=== PATIENT | female | born 1995 ===

== ENCOUNTER 2025-01-27 09:58 | Outpatient (AMB) | payer MEDICAID, SELFPAY ==
[2025-01-27 10:09] VITALS: BP 113/73; PULSE 73; RESP 16; TEMP 36.8; O2SAT 99; BMI 33.8
--- NOTE | 2025-01-27 10:09 | OBCLNT_ITS ---
Vital Signs 01/27/25 10:09 Height 1.52 m Height Method Stated Weight 78.642 kg Weight Measurement Method Standing Scale BMI 33.8 BP 113/73 Blood Pressure Source Automatic Cuff Blood Pressure Location Left Upper Arm Position Sitting Respiration 16 Pulse 73 Pulse Source Monitor Temp 98.2 F Temp Source Oral Pulse Oximetry (%) 99 Oxygen Delivery Method Room Air Allergies/Home Meds Allergies & Medications Allergies No Known Drug Allergies Allergy (Unknown, Verified 01/27/25 10:13) Intake Visit Data Collection New Patient or Established: Established Patient (seen at [facility] within 3 years) Reason for Visit:: OBC Seen by Clinical Staff ONLY (RN/MA): No Do You Feel Safe at Home: Yes Authorities Contacted: N/A PCP or OBGYN visit in last 3 months: No Hx Now: Yes Are you currently on any form of Control: No Last menstrual period: 10/29/24 Pain Present Currently: No Pain scale:: 0 Smoking Status Smoking Status: Never smoker Questionnaires Covid-19 Vaccine Questionnaire Has patient been vacinated for Covid-19 Have you been vacinated for Covid-19: Yes PHQ-9 PHQ-2 Over the last 2 weeks, how often have you been bothered by any of the following problems? 1. Little interest or pleasure in doing things: not at all 2. Feeling down, depressed, or hopeless: not at all Total score: 0 PHQ-9 3. Trouble falling or staying asleep, or sleeping too much: Not at all 4. Feeling tired or having little energy: Not at all 5. Poor appetite or overeating: Not at all 6. Feeling bad about yourself - or that you are a failure or have let yourself or your family down: Not at all 7. Trouble concentrating on things, such as reading the newspaper or watching television: Not at all 8. Moving or speaking so slowly that other people could have noticed? - Or the opposite - being so fidgety or restless that you have been moving around a lot more than usual: not at all 9. Thoughts that you would be better off or of hurting yourself in some way: Not at all Total score: 0 If you checked off any problems, how difficult have these problems made it for you to do your work, take care of things at home, or get along with other people?: not difficult at all Source: Developed by Drs. Jseús Parson, Suzanne Dill, Josh Cole and colleagues, with an educational rajan from [employer]. Depression screen completed yes Social History Living Situation History Marital Status: Lives With: Family Housing: House Tobacco History Smoking Status: Never smoker Alcohol History Alcohol Intake: Never Domestic Abuse History Do You Feel Safe at Home: Yes Past Medical History Past Medical History Have you ever been diagnosed with any of the following: Cardiology Problems Congestive Heart Failure: No Respiratory Problems Chronic Obstructive Pulmonary Disease (COPD): No Stomache/Intestinal Problems Hepatitis: No Colorectal Cancer: No Genital/Urinary Problems Renal Disease: No Prostate Cancer: No Reproductive Problems Breast Cancer: No Testicular Cancer: No Musculoskeletal Problems Bone Cancer: No Endocrine Problems Diabetes Mellitus Type 1: No Diabetes Mellitus Type 2: No Other Problems Human Immunodeficiency Virus (HIV): No Chicken Pox: No Measles: No Mumps: No Rubella (Belarusian Measles): No Pertussis: No Clostridium Difficile: No Cancer: No Cervical Cancer: No Lung Cancer: No Ovarian Cancer: No History of Present Illness HPI Narrative Patient presents for her first visit, referred by her previous healthcare provider, Mariana. She reports her last menstrual period was on October 29. Patient denies any current nausea or vomiting, stating that her nausea has resolved. She also reports that her dizziness has subsided. Patient denies any bleeding or cramping. She is currently taking vitamins. Patient has a history of two previous pregnancies, both resulting in vaginal deliveries without complications such as high blood pressure or gestational diabetes. She has not yet established a coverstitch elastic attacher for her children due to frequent changes in available providers. Additionally, her cousin recommended Dr. Saavedra based on a positive experience. TRUDI based on LMP (10/29/2024) 08/05/2025 TRUDI by ultrasound 11w2d on 01/27/2025 is 08/16/2025 OB Initial Visit Menstrual History Menstrual reliability: definite Flow: normal Menstrual regularity: regular Monthly: Yes On control pills at conception: No Date of positive home test: 12/09/24 OB History : 3 Para: 2 Hx # Pregnancies: 0 Hx Total # of Abortions (Spontaneous & Elective): 0 # of Living Children: 2 Delivery History 1st : Child's name: NAVA date: 12/23/14 sex: male Delivery type: vaginal History of depression before or after : No 2nd : Child's name: JOAQUIN date: 12/06/19 sex: female Delivery type: vaginal weight (lbs): 2267.962 g History of depression before or after : No Genetic Screening & History Genetic Screening/Teratology Counseling - Includes patient, baby's father, or anyone in either family with: 1. Patient's age 35 years or older as of estimated date of delivery: No 2. Thalassemia (Croatian, Sao Tomean, Mediterranean, or Background); MCV less than 80: No 3. Neural Tube Defect (Meningomyelocele, Spina Bifida, or Anencephaly): No 4. Congenital Heart Defect: No 5. Down Syndrome: Yes 6. Donnie-Sachs (Ashkenazi Protestant, Cajun, [place]an [place]): No 7. Julia Disease (Ashkenazi Protestant): No 8. Familial Dysautonomia (Ashkenazi Protestant): No 9. Sickle Cell Disease or Trait (): No 10. Hemophilia or other blood disorders: No 11. Muscular Dystrophy: No 12. Cystic Fibrosis: No 13. Ceiba's Chorea: No 14. Mental Retardation/Autism: No 15. Other inherited genetic or chromosomal disorder: No 16. Maternal Metabolic Disorder (EG,TYPE 1 Diabetes, PKU): No 17. Patient or baby's father had a child with defects not listed above: Yes 18. Recurrent loss or a stillbirth: No 19. Medications (including supplements, vitamins, herbs or otc drugs)/illicit/recreational drugs/alcohol since last menstrual period: No 20. Any other: No Infection History 1. Live with someone with TB or exposed to TB: No 2. Rash or viral illness since last menstrual period: No 3. Hepatitis B,C: No Other (see comments) Source: [employer] Review of Systems Review of Systems Systems Reviewed: All systems reviewed, normal except as documented Exam General Limitations: no limitations General Appearance: alert, in no apparent distress, comfortable, cooperative, healthy appearing, well developed and well groomed Head Head exam: atraumatic, normocephalic and normal inspection ENT ENT exam: Present normal exam, normal oropharynx and mucous membranes moist Neck Neck exam: Present normal inspection, full ROM and trachea midline Chest Chest inspection: Present normal inspection and symmetric chest wall rise Abdominal Abdominal exam: Present soft and normal bowel sounds Exp OB exam: Present deferred Extremities Extremities exam: Present normal inspection and full ROM Back Back exam: Present normal inspection and full ROM Psych Psychiatric exam: Present normal affect and normal mood Skin Skin exam: Present warm, dry, intact and normal color Assessment & Plan Diagnosis / Problem List (1) Rh negative status during : Status: Acute Plan: , 11 weeks 3 days gestation: - First visit at approximately 11 weeks 3 days gestation based on ultrasound dating. - Last menstrual period was October 29. - Bedside Ultrasound confirms kohler intrauterine with heart rate of 166 bpm, normal for first trimester. - Patient denies current symptoms of nausea, vomiting, dizziness, bleeding, or cramping. - No history of gestational hypertension or gestational diabetes in previous pregnancies. - Patient has had two previous uncomplicated vaginal deliveries. - Referred by Mariana due to availability issues at [facility]. Plan: - Established estimated due date of August 05 based on last menstrual period, with ultrasound suggesting August 16. - Ordered comprehensive laboratory tests. - Ordered genetic screening tests including gender determination and Down syndrome screening. - Recommended patient sign up for patient portal to access test results. - Scheduled follow-up appointment in 4 weeks. - Continue vitamins. (2) Normal in multigravida in first trimester: Status: Acute Office Procedures OB Clinic LOC & Office Proc's Nursing/Assessment Patient Status: Initial/New Patient OB Clinic Nursing Assessment: BP Monitoring, Medication Reconciliation, Update PMH in EMR and Vital Signs OB Clinic Coordination of Care: Consent,records obtained, informed consent, Education Simp Pt/Fam, Lab and Imaging orders and Staff clarify orders Special Needs: Heart tones New Patient Charge New Patient Point Assignment: 1119 New Patient Point Charge: INDUSTRIAL RELATIONS SPECIALIST Level 4 ([id number]) Established Patient Charge Established Patient Point Charge: EP Level 4 (120-155) Antepartum Initial or Follow-up Antepartum Initial Visit: Yes Bedside Ultrasounds US Transabdominal <14 weeks at bedside: Yes
== END 2025-01-27 10:27 | disposition home or self-care (01) ==
LOC: HODSOBC 09:58
PROVIDERS: PCP Obstetrics & Gynecology; Supervising Provider Obstetrics & Gynecology; Visit Provider Obstetrics & Gynecology
DX: O26.899 Other specified pregnancy related conditions, unspecified trimester (principal); Z67.91 Unspecified blood type, Rh negative
CPT/HCPCS: 76801; 76805; 99204; 99214; G0463

== ENCOUNTER 2025-02-26 09:32 | Outpatient (AMB) | payer MEDICAID, SELFPAY ==
[2025-02-26 09:45] VITALS: BP 122/75; PULSE 90; RESP 18; TEMP 36.1; O2SAT 99; BMI 33.7
--- NOTE | 2025-02-26 09:45 | AMB.OBVISIT ---
Vital Signs 02/26/25 09:45 Height 1.52 m Height Method Stated Weight 78.075 kg Weight Measurement Method Standing Scale BMI 33.7 BP 122/75 Blood Pressure Source Automatic Cuff Blood Pressure Location Left Upper Arm Position Sitting Respiration 18 Pulse 90 Pulse Source Monitor Temp 96.9 F Temp Source Oral Pulse Oximetry (%) 99 Oxygen Delivery Method Room Air Allergies/Home Meds Allergies & Medications Allergies No Known Drug Allergies Allergy (Unknown, Verified 01/27/25 10:13) Intake Visit Data Collection New Patient or Established: Established Patient (seen at [facility] within 3 years) Reason for Visit:: - Possible yeast infection: I think I might have a yeast infection - Itching - Vaginal discharge Seen by Clinical Staff ONLY (RN/MA): No Histology Teacher Required: No Do You Feel Safe at Home: Yes Authorities Contacted: N/A PCP or OBGYN visit in last 3 months: Yes Hx Now: No Are you currently on any form of Control: No Pain Present Currently: No Pain Scale Used: Henning-Santiago/Numerical Pain scale:: 0 Smoking Status Smoking Status: Never smoker Questionnaires Covid-19 Vaccine Questionnaire Has patient been vacinated for Covid-19 Have you been vacinated for Covid-19: No PHQ-9 PHQ-2 Over the last 2 weeks, how often have you been bothered by any of the following problems? 1. Little interest or pleasure in doing things: not at all 2. Feeling down, depressed, or hopeless: not at all Total score: 0 PHQ-9 3. Trouble falling or staying asleep, or sleeping too much: Not at all 4. Feeling tired or having little energy: Not at all 5. Poor appetite or overeating: Not at all 6. Feeling bad about yourself - or that you are a failure or have let yourself or your family down: Not at all 7. Trouble concentrating on things, such as reading the newspaper or watching television: Not at all 8. Moving or speaking so slowly that other people could have noticed? - Or the opposite - being so fidgety or restless that you have been moving around a lot more than usual: not at all 9. Thoughts that you would be better off or of hurting yourself in some way: Not at all Total score: 0 If you checked off any problems, how difficult have these problems made it for you to do your work, take care of things at home, or get along with other people?: not difficult at all Source: Developed by Drs. Jesús Parson, Suzanne Dill, Josh Cole and colleagues, with an educational rajan from [employer]. Depression screen completed yes Social History Living Situation History Lives With: Family Housing: House Tobacco History Smoking Status: Never smoker Alcohol History Alcohol Intake: Never Domestic Abuse History Do You Feel Safe at Home: Yes Past Medical History Past Medical History Have you ever been diagnosed with any of the following: Cardiology Problems Congestive Heart Failure: No Respiratory Problems Chronic Obstructive Pulmonary Disease (COPD): No Stomache/Intestinal Problems Hepatitis: No Colorectal Cancer: No Genital/Urinary Problems Renal Disease: No Prostate Cancer: No Reproductive Problems Breast Cancer: No Testicular Cancer: No Musculoskeletal Problems Bone Cancer: No Endocrine Problems Diabetes Mellitus Type 1: No Diabetes Mellitus Type 2: No Other Problems Human Immunodeficiency Virus (HIV): No Chicken Pox: No Measles: No Mumps: No Rubella (Angolan Measles): No Pertussis: No Clostridium Difficile: No Cancer: No Cervical Cancer: No Lung Cancer: No Ovarian Cancer: No History of Present Illness HPI Narrative - Lindsey Mcclure is a patient in her early second trimester presenting for a routine visit with concerns about a possible yeast infection. - Yeast infection symptoms: - Patient reports itching and discharge - Onset and duration not specified - Cramping: - Patient experienced some cramping 2-3 weeks ago - Described as not really significant - Other -related symptoms: - Denies current nausea, vomiting, cramping, or spotting - Medication adherence: - Patient confirms taking vitamins - Recent healthcare interactions: - No mention of recent ultrasound from [place] No contractions/ LOF/VB, reports good FM No GEIGER/VC/RUQ/Epig pain Review of Systems Review of Systems Systems Reviewed: All systems reviewed, normal except as documented Visit TRUDI Calculator Estimated Delivery Date Method Current WG Current Estimate 08/16/25 Ultrasound #1 19w 6d Other Estimates 08/05/25 LMP (Certain) 21w 3d Initial Weight: Not Recorded Date <del>?</del> EGA Weight Edema CTX Effacement BP Fundal ht Pres Dilation Effacement Station Visit Note Alb Glu FHR Mov 02/26/25 <del>?</del> 15w 4d 78.075 kg 122/75 No CTX/LOF/VB. Reports good FM. No GEIGER/VS, Epig/RUQ pain. Reports vaginal itching and discharge, suggestive of yeast infection. Mild cramping 2?3 weeks ago, resolved. Denies other complaints. Taking vitamins. FHR: 157 bpm (normal). Assessment & Plan: Early 2nd trimester with suspected vulvovaginal candidiasis. Prescribe 7-day antifungal cream Await call from [facility] for 20w US at [facility] ECG Continue vitamins Follow-up in 4 weeks Reviewed signs of labor and routine care guidance Exam General General Appearance: alert, in no apparent distress and healthy appearing Head Head exam: atraumatic Neck Neck exam: Present normal inspection and trachea midline Chest Chest inspection: Present normal inspection and symmetric chest wall rise External exam: Present normal external exam; Absent tenderness Neuro Neurological exam: Present oriented X3 Psych Psychiatric exam: Present normal affect and normal mood Assessment & Plan Diagnosis / Problem List (1) Supervision of high risk , unspecified, second trimester: Status: Acute (2) Rh negative state in antepartum period: Status: Acute (3) Vulvovaginal candidiasis: Status: Acute Plan Problem List - , second trimester - Vulvovaginal candidiasis Assessment - Early 2nd trimester - Suspected yeast infection with symptoms of itching and discharge - heart rate 157 bpm - History of mild cramping 2-3 weeks ago, now resolved Plan - Prescribe 7-day course of antifungal cream for suspected yeast infection - Await call from [facility] for 20-week ultrasound at [facility] - Continue vitamins - Follow up appointment in 4 weeks - ECG ordered Educated the patient on labor signs, including regular contractions, lower back pain, and changes in vaginal discharge. Advised avoiding heavy lifting and getting adequate rest. Instructed to contact the office immediately if any signs occur. Discussed the importance of a balanced diet rich in folic acid, iron, and calcium, and provided a list of recommended and to-avoid foods. Emphasized avoiding high-sugar foods to reduce gestational diabetes risk. Encouraged hydration and frequent, small meals for energy.. Office Procedures OB Clinic LOC & Office Proc's Nursing/Assessment Patient Status: Established Patient OB Clinic Nursing Assessment: BP Monitoring, Medication Reconciliation, Update PMH in EMR and Vital Signs OB Clinic Coordination of Care: Consent,records obtained, informed consent, Education Simp Pt/Fam, Lab and Imaging orders and Staff clarify orders Special Needs: Heart tones Established Patient Charge Established Patient Point Assignment: 120 Established Patient Point Charge: EP Level 4 (120-155)
== END 2025-02-26 09:51 | disposition home or self-care (01) ==
LOC: HODSOBC 09:32
PROVIDERS: PCP Obstetrics & Gynecology; Referring Provider Obstetrics & Gynecology; Supervising Provider Obstetrics & Gynecology; Visit Provider Obstetrics & Gynecology
DX: O09.92 Supervision of high risk pregnancy, unspecified, second trimester (principal); Z3A.15 15 weeks gestation of pregnancy; Z67.91 Unspecified blood type, Rh negative; N76.0 Acute vaginitis; B37.31 Acute candidiasis of vulva and vagina
CPT/HCPCS: 99214; G0463

== ENCOUNTER 2025-04-02 09:54 | Outpatient (AMB) | payer MEDICAID, SELFPAY ==
--- NOTE | 2025-04-02 10:03 | AMB.OBVISIT ---
Vital Signs 04/02/25 10:18 Height 1.52 m Height Method Stated Weight 79.038 kg Weight Measurement Method Standing Scale BMI 34.0 BP 104/71 Blood Pressure Source Automatic Cuff Blood Pressure Location Left Upper Arm Position Sitting Respiration 14 Pulse 65 Pulse Source Monitor Temp 97.5 F Temp Source Oral Pulse Oximetry (%) 98 Oxygen Delivery Method Room Air Allergies/Home Meds Allergies & Medications Allergies No Known Drug Allergies Allergy (Unknown, Verified 04/02/25 10:23) Medication Reconciliation No Known Home Medications 04/02/25 [History Confirmed 04/02/25] Intake Visit Data Collection New Patient or Established: Established Patient (seen at [facility] within 3 years) Reason for Visit:: - Routine care at 20 weeks and 4 days gestation - A little bit of cramps here and there but nothing serious Seen by Clinical Staff ONLY (RN/MA): No Supervisor Boarding Required: No Do You Feel Safe at Home: Yes Authorities Contacted: N/A PCP or OBGYN visit in last 3 months: Yes Hx Now: Yes Are you currently on any form of Control: No Pain Present Currently: No Pain Scale Used: Henning-Santiago/Numerical Pain scale:: 0 Smoking Status Smoking Status: Never smoker Questionnaires Covid-19 Vaccine Questionnaire Has patient been vacinated for Covid-19 Have you been vacinated for Covid-19: Yes PHQ-9 PHQ-2 Over the last 2 weeks, how often have you been bothered by any of the following problems? 1. Little interest or pleasure in doing things: not at all 2. Feeling down, depressed, or hopeless: not at all Total score: 0 PHQ-9 3. Trouble falling or staying asleep, or sleeping too much: Not at all 4. Feeling tired or having little energy: Not at all 5. Poor appetite or overeating: Not at all 6. Feeling bad about yourself - or that you are a failure or have let yourself or your family down: Not at all 7. Trouble concentrating on things, such as reading the newspaper or watching television: Not at all 8. Moving or speaking so slowly that other people could have noticed? - Or the opposite - being so fidgety or restless that you have been moving around a lot more than usual: not at all 9. Thoughts that you would be better off or of hurting yourself in some way: Not at all Total score: 0 Source: Developed by Drs. Jesús Parson, Suzanne Dill, Josh Cole and colleagues, with an educational rajan from [employer]. Depression screen completed yes Social History Living Situation History Lives With: Family Housing: House Tobacco History Smoking Status: Never smoker Alcohol History Alcohol Intake: Never Domestic Abuse History Do You Feel Safe at Home: Yes Past Medical History Past Medical History Have you ever been diagnosed with any of the following: Cardiology Problems Congestive Heart Failure: No Respiratory Problems Chronic Obstructive Pulmonary Disease (COPD): No Stomache/Intestinal Problems Hepatitis: No Colorectal Cancer: No Genital/Urinary Problems Renal Disease: No Reproductive Problems Breast Cancer: No Musculoskeletal Problems Bone Cancer: No Endocrine Problems Diabetes Mellitus Type 1: No Diabetes Mellitus Type 2: No Other Problems Human Immunodeficiency Virus (HIV): No Chicken Pox: No Measles: No Mumps: No Rubella ([place] Measles): No Pertussis: No Clostridium Difficile: No Cancer: No Cervical Cancer: No Lung Cancer: No Ovarian Cancer: No History of Present Illness HPI Narrative - Lindsey Mcclure is a 29-year-old (gravidaric parietal) presenting for care at 20 weeks and 4 days gestation. - Patient transferred care from [facility] after one visit. - Estimated due date changed to August 16 based on bedside ultrasound at last appointment, which was consistent with 11 weeks and 3 days gestation. - Patient reports: - movement is present - No contractions - Occasional mild cramps, described as a little bit of cramps here and there but nothing serious - Patient is taking vitamins as prescribed - No reported issues or concerns with the No contractions/ LOF/VB, reports good FM No GEIGER/VC/RUQ/Epig pain Care OB Visit Log OB Flowsheet Initial Weight: Not Recorded Date <del>?</del> EGA Weight Edema CTX Effacement BP Fundal ht Pres Dilation Effacement Station Visit Note Alb Glu FHR Mov 02/26/25 <del>?</del> 15w 4d 78.075 kg 122/75 No CTX/LOF/VB. Reports good FM. No GEIGER/VS, Epig/RUQ pain. Reports vaginal itching and discharge, suggestive of yeast infection. Mild cramping 2?3 weeks ago, resolved. Denies other complaints. Taking vitamins. FHR: 157 bpm (normal). Assessment & Plan: Early 2nd trimester with suspected vulvovaginal candidiasis. Prescribe 7-day antifungal cream Await call from [facility] for 20w US at [facility] Order ECG Continue vitamins Follow-up in 4 weeks Reviewed signs of labor and routine care guidance 04/02/25 <del>?</del> 20w 4d 79.038 kg 104/71 Lindsey Mcclure, at 20 weeks and 4 days gestation, presents for routine care. She reports mild, intermittent cramping without contractions, describes movement as present, and has no significant concerns. Transferred care from [facility]. Estimated due date is August 16 based on prior ultrasound. Patient continues vitamins and denies any LOF, VB, or upper abdominal symptoms. Plan: Attend scheduled anatomy ultrasound at [facility] on Monday Follow up in 2 weeks Continue vitamins Maintain hydration to minimize [place] contractions Instructed to call or present to L&D for pain, LOF, VB, or decreased FM TRUDI Calculator Estimated Delivery Date Method Current WG Current Estimate 08/16/25 Ultrasound #1 20w 5d Other Estimates 08/05/25 LMP (Certain) 22w 2d Exam General General Appearance: alert, in no apparent distress and healthy appearing Head Head exam: atraumatic Neck Neck exam: Present normal inspection and trachea midline Chest Chest inspection: Present normal inspection and symmetric chest wall rise External exam: Present normal external exam; Absent tenderness Neuro Neurological exam: Present oriented X3 Psych Psychiatric exam: Present normal affect and normal mood Assessment & Plan Diagnosis / Problem List (1) Rh negative state in antepartum period: Status: Acute (2) Supervision of high risk , unspecified, second trimester: Status: Acute Plan Problem List - , 20 weeks and 4 days gestation - [place] M[place] contractions Assessment - Intrauterine at 20 weeks and 4 days gestation - Estimated due date August 16 based on ultrasound at 11 weeks 3 days - [place] M[place] contractions reported - Normal lab results: - CBC: Hemoglobin 14.3, Hematocrit 43.8, Platelets 258 - Maternity 21 negative - Rubella immune - RPR non-reactive - Hepatitis B negative - Antibody screen negative Plan - Attend scheduled ultrasound appointment at [facility] on Monday - Follow up in 2 weeks - Continue taking vitamins - Stay hydrated to prevent labor - Call or come to the hospital if any issues arise Educated the patient on labor signs, including regular contractions, lower back pain, and changes in vaginal discharge. Advised avoiding heavy lifting and getting adequate rest. Instructed to contact the office immediately if any signs occur. Discussed the importance of a balanced diet rich in folic acid, iron, and calcium, and provided a list of recommended and to-avoid foods. Emphasized avoiding high-sugar foods to reduce gestational diabetes risk. Encouraged hydration and frequent, small meals for energy.. Office Procedures OB Clinic LOC & Office Proc's Nursing/Assessment Patient Status: Established Patient OB Clinic Nursing Assessment: Medication Reconciliation, Update PMH in EMR and Vital Signs OB Clinic Coordination of Care: Complex Care and Chronic Disease 1-5, Consent,records obtained, informed consent, Education Simp Pt/Fam, Lab and Imaging orders, Results/Orders obtained and Staff clarify orders Special Needs: Heart tones Miscellaneous Interventions: Blood/Urine Collection Established Patient Charge Established Patient Point Assignment: 165 Established Patient Point Charge: EP Level 5 (160-above)
[2025-04-02 10:18] VITALS: BP 104/71; PULSE 65; RESP 14; TEMP 36.4; O2SAT 98; BMI 34.0
== END 2025-04-02 10:56 | disposition home or self-care (01) ==
LOC: HODSOBC 09:54
PROVIDERS: PCP Obstetrics & Gynecology; Referring Provider Obstetrics & Gynecology; Supervising Provider Obstetrics & Gynecology; Visit Provider Obstetrics & Gynecology
DX: O09.892 Supervision of other high risk pregnancies, second trimester (principal); O47.02 False labor before 37 completed weeks of gestation, second trimester; Z3A.20 20 weeks gestation of pregnancy; O26.892 Other specified pregnancy related conditions, second trimester; Z67.91 Unspecified blood type, Rh negative
CPT/HCPCS: 99215; G0463

== ENCOUNTER 2025-04-17 10:55 | Outpatient (AMB) | payer MEDICAID, SELFPAY ==
[2025-04-17 11:42] VITALS: BP 108/72; PULSE 89; RESP 18; TEMP 36.2; O2SAT 96; BMI 34.7
--- NOTE | 2025-04-17 11:42 | OBCLNT_ITS ---
Vital Signs 04/17/25 11:42 Height 1.52 m Height Method Stated Weight 80.343 kg Weight Measurement Method Standing Scale BMI 34.7 BP 108/72 Blood Pressure Source Automatic Cuff Blood Pressure Location Left Upper Arm Position Sitting Respiration 18 Pulse 89 Pulse Source Monitor Temp 97.2 F Temp Source Oral Pulse Oximetry (%) 96 Oxygen Delivery Method Room Air Allergies/Home Meds Allergies & Medications Allergies No Known Drug Allergies Allergy (Unknown, Verified 04/17/25 11:43) Medication Reconciliation No Known Home Medications 04/02/25 [History Confirmed 04/17/25] Intake Visit Data Collection New Patient or Established: Established Patient (seen at [facility] within 3 years) Reason for Visit:: OBC Seen by Clinical Staff ONLY (RN/MA): No [employer] Programmer Required: No Do You Feel Safe at Home: Yes Authorities Contacted: N/A PCP or OBGYN visit in last 3 months: Yes Date of Last PCP or OBGYN visit: 04/02/25 Hx Now: Yes Are you currently on any form of Control: No Pain Present Currently: No Pain Scale Used: Henning-Santiago/Numerical Pain scale:: 0 Smoking Status Smoking Status: Never smoker Questionnaires Covid-19 Vaccine Questionnaire Has patient been vacinated for Covid-19 Have you been vacinated for Covid-19: Yes PHQ-9 PHQ-2 Over the last 2 weeks, how often have you been bothered by any of the following problems? 1. Little interest or pleasure in doing things: not at all 2. Feeling down, depressed, or hopeless: not at all Total score: 0 PHQ-9 3. Trouble falling or staying asleep, or sleeping too much: Not at all 4. Feeling tired or having little energy: Not at all 5. Poor appetite or overeating: Not at all 6. Feeling bad about yourself - or that you are a failure or have let yourself or your family down: Not at all 7. Trouble concentrating on things, such as reading the newspaper or watching television: Not at all 8. Moving or speaking so slowly that other people could have noticed? - Or the opposite - being so fidgety or restless that you have been moving around a lot more than usual: not at all 9. Thoughts that you would be better off or of hurting yourself in some way: Not at all Total score: 0 If you checked off any problems, how difficult have these problems made it for you to do your work, take care of things at home, or get along with other people?: not difficult at all Source: Developed by Drs. Jesús Parson, Suzanne Dill, Josh Cole and colleagues, with an educational rajan from [employer]. 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 - Estimated due date: 08/16/2025 - Patient reports: - Feeling movement - Experiencing mild cramping, described as nothing major - Denies: - Contractions - Back pain - History of 2 previous full-term vaginal deliveries No contractions/ LOF/VB, reports good FM No GEIGER/VC/RUQ/Epig pain Estimated Due Date Summary LMP 10/29/2024 TRUDI by LMP 08/05/2025 Ultrasound #1 01/27/2025 GA at us 11w2d TRUDI by US #1 08/16/2025 Final TRUDI 08/16/2025 Basis for Final TRUDI 11w Sono Previous Section? No Care OB Visit Log OB Flowsheet Initial Weight: Not Recorded Date -?-?-?-?-?-?-?-?-?-?-?-?- EGA Weight BP Alb Glu CTX Pres Fundal ht FHR Mov Dilation Station Effacement Hx Notes Visit Note 02/26/25 -?-?-?-?-?-?-?-?-?-?-?-?- 15w 4d 78.075 kg 122/75 No CTX/LOF/VB. Reports good FM. No GEIGER/VS, Epig/RUQ pain. Reports vaginal itching and discharge, s uggestive of yeast infection. Mild cramping 2?3 weeks ago, resolved. Denies other complaints. Taking vitamins. FHR: 157 bpm (normal). Assessment & Plan: Early 2nd trimester with suspe cted vulvovaginal candidiasis. Prescribe 7-day antifungal cream Await call from [facility] for 20w US at [facility] Order ECG Continue vitamins Follow-up in 4 weeks Reviewed signs of labor and routine care gu idance 04/02/25 -?-?-?-?-?-?-?-?-?-?-?-?- 20w 4d 79.038 kg 104/71 Lindsey Mcclure, at 20 weeks and 4 days gestation, presents for routine care. She reports mild, intermittent cramping without contractions, describes movement as present, and has no s ignificant concerns. Transferred care from [facility]. Estimated due date is August 16 based on prior ultrasound. Patient continues vitamins and denies any LOF, VB, or upper abdominal symptoms. Plan: Attend scheduled anatomy ultrasound at [facility] on Monday Follow up in 2 weeks Continue vitamins Maintain hydration to minimize [place] contractions Instructed to call or present to L&D for pain, LOF, VB, or d ecreased FM 04/17/25 -?-?-?-?-?-?-?-?-?-?-?-?- 22w 5d 80.343 kg 108/72 at 22w5d gestation presents for routine care. Reports mild cramping, denies contractions or back pain. FM+. FHT 145 bpm. TRUDI 08/16/2025. Anatomy scan at 21w5d reportedly normal with posterior placenta, grade 1. Hx of 2 prior full-term vaginal deliveries. Plan: Follow-up in 4 weeks Order glucose tolerance test Retrieve and review ultrasound from [facility] Continue coordinating [facility] ultrasound at [facility] precautions reviewed TRUDI Calculator Estimated Delivery Date Method Current WG Current Estimate 08/16/25 Ultrasound #1 22w 6d Other Estimates 08/05/25 LMP (Certain) 24w 3d Exam General General Appearance: alert, in no apparent distress and healthy appearing Head Head exam: atraumatic Neck Neck exam: Present normal inspection and trachea midline Chest Chest inspection: Present normal inspection and symmetric chest wall rise External exam: Present normal external exam; Absent tenderness Neuro Neurological exam: Present oriented X3 Psych Psychiatric exam: Present normal affect and normal mood Office Procedures OB Clinic LOC & Office Proc's Nursing/Assessment Patient Status: Established Patient OB Clinic Nursing Assessment: Medication Reconciliation, Update PMH in EMR and Vital Signs OB Clinic Coordination of Care: Education Complex Pt/Fam, Consent,records obtained, informed consent, Lab and Imaging orders, Results/Orders obtained and Staff clarify orders Special Needs: Heart tones Established Patient Charge Established Patient Point Assignment: 115 Established Patient Point Charge: EP Level 3 (80-115) Assessment & Plan Diagnosis / Problem List (1) Rh negative state in antepartum period: Status: Acute (2) Supervision of high risk , unspecified, second trimester: Status: Acute Plan Problem List - , 22 weeks and 5 days gestation - 3, Para 2 Assessment - Intrauterine at 22 weeks and 5 days gestation - 3, Para 2 - Estimated due date: 08/16/2025 - heart rate 145 bpm, normal - Anatomy survey ultrasound performed at 21 weeks 5 days, within normal limits - Posterior placenta, grade one - Normal growth and amniotic fluid - History of 2 previous full-term vaginal deliveries - Mild cramping reported by patient Plan - Schedule follow-up appointment in 4 weeks - Perform glucose tolerance test for gestational diabetes screening - Obtain and review ultrasound results from [facility] - Continue efforts to schedule [facility] ultrasound at [facility] Educated the patient on labor signs, including regular contractions, lower back pain, and changes in vaginal discharge. Advised avoiding heavy lifting and getting adequate rest. Instructed to contact the office immediately if any signs occur. Discussed the importance of a balanced diet rich in folic acid, iron, and calcium, and provided a list of recommended and to-avoid foods. Emphasized avoiding high-sugar foods to reduce gestational diabetes risk. Encouraged hydration and frequent, small meals for energy..
== END 2025-04-17 11:59 | disposition home or self-care (01) ==
LOC: HODSOBC 10:55
PROVIDERS: PCP Obstetrics & Gynecology; Referring Provider Obstetrics & Gynecology; Supervising Provider Obstetrics & Gynecology; Visit Provider Obstetrics & Gynecology
DX: O09.892 Supervision of other high risk pregnancies, second trimester (principal); Z3A.22 22 weeks gestation of pregnancy; O26.892 Other specified pregnancy related conditions, second trimester; Z67.91 Unspecified blood type, Rh negative
CPT/HCPCS: 99213; G0463